=== PATIENT | male | born 1985 | race Caucasian/White ===

== ENCOUNTER 2020-12-18 04:31 | Inpatient (IN) | payer MEDICAID, SELFPAY ==
[2020-12-18 04:31] VITALS: BP 136/99; PULSE 67; RESP 18; TEMP 36.9; O2SAT 99; BMI 17.9
--- NOTE | 2020-12-18 04:37 | W.ED.PSYCH ---
HPI - Psych General: Chief Complaint: Psychiatric Symptoms Stated Complaint: si/hi Time Seen by Provider: 12/18/20 04:31 Source: patient and EMS Mode of arrival: EMS Limitations: no limitations History of Present Illness: HPI Narrative: 85-year-old male who states he has been having relationship issues with his fianc?e and she does not find any infection anymore and that he is having suicidal thoughts. He states is also had thoughts of harming other people as well. He has no active plan but states that he is becoming increasingly suicidal. He does have a history of drug use and is on Suboxone. He states he has been drinking tonight and has had roughly 7-8 beers. Associated symptoms: Reports depression Review of Systems Const: Denies: fever(s), chills, body aches or change in appetite Eyes: Denies: blurry vision or eye discomfort ENMT: Denies: throat pain or dental pain Card: Denies: chest pain Resp: Denies: dyspnea GI: Denies: abdominal pain, nausea, vomiting or diarrhea : Denies: dysuria Musc: Denies: neck pain or back pain Skin/Breast: Denies: rash Neuro: Denies: headache(s) Psych: Reports: depression Cliff/Lymph: Denies: easy bruising All/Imm: Denies: urticaria Physical Exam Const: COMMON NORMALS: no acute distress, patient oriented x3 and healthy appearing HENMT: COMMON NORMALS: normocephalic and atraumatic HEAD & SCALP: normocephalic and atraumatic Eye: COMMON NORMALS: Equal, round and reactive pupils present and EOMs intact bilaterally PUPIL: Yes Equal, round and reactive pupils present Neck/C-Spine: COMMON NORMALS: full ROM and supple Chest: COMMONS NORMALS: normal inspection of the chest and normal palpation of entire chest wall Resp: COMMON NORMALS: normal respiratory effort, No retractions, No use of accessory muscles and clear to auscultation bilaterally AUSCULTATION: clear to auscultation bilaterally Cardio: COMMON NORMALS: regular rate, regular rhythm and No murmurs present (Cardio) RATE: regular rate RHYTHM: regular rhythm GI: COMMON NORMALS: Normal to inspection, nondistended, normoactive bowel sounds present, Soft to palpation, non-tender and no masses PALPATION: Yes Soft to palpation Extremity: COMMON NORMALS: normal to inspection and full ROM Neuro: COMMON NORMALS: patient oriented x3, moves all extremities and no focal motor deficits Psych: COMMON NORMALS: mental status grossly normal, Normal thought process present and cooperative MOOD & AFFECT: Yes depressed mood THOUGHT PROCESS: Normal thought process present THOUGHT CONTENT: Yes Suicidality present Skin: COMMON NORMALS: no rashes or lesions noted and no wounds GENERAL SKIN EXAM: no rashes or lesions noted Course Vital Signs: Vital signs: Vital Signs Temperature 98.4 F 12/18/20 04:31 Pulse Rate 67 12/18/20 04:31 Respiratory Rate 18 12/18/20 04:31 Blood Pressure 136/99 12/18/20 04:31 Pulse Oximetry 99 12/18/20 04:31 MDM - Psych MDM Narrative: Medical decision making narrative: Patient presents here with suicidal ideation was placed on a 96-hour hold. Patient is medically cleared I spoke to psychiatrist and will admit to the psychiatric unit. Lab Data: Labs: Lab Results 12/18/20 Range/Units 05:10 WBC 6.9 (4.0-10.0) 10^3/ uL RBC 5.04 (4.1-5.3) 10^6/u L Hgb 14.9 (11.7-16.6) g/dL Hct 44.0 (42.0-52.0) % MCV 87.3 (80-94) fL MCH 29.6 (28.0-34.0) pg MCHC 33.9 (30.0-36.0) g/dL RDW 12.4 (12.1-15.1) % Plt Count 267 (130-400) 10^3/c mm MPV 9.6 (7.4-10.4) fL Neut % (Auto) 47.6 % Lymph % (Auto) 39.1 % [place] % (Auto) 9.4 % Eos % (Auto) 2.6 % Baso % (Auto) 1.2 % Neut # (Auto) 3.30 (1.8-7.7) 10^3/u L Lymph # (Auto) 2.7 (0.8-4.8) 10^3/u L [place] # (Auto) 0.7 (0.2-0.9) 10^3/u L Eos # (Auto) 0.2 (0.0-0.8) 10^3/u L Baso # (Auto) 0.1 (0.0-0.1) 10^3/u L Nucleated RBC % (a uto) 0 % Nucleated RBCs # 0.0 /100WBC Discharge Plan Discharge Patient Disposition: Admitted As Inpatient Clinical Impression: Suicidal ideation, Alcohol intoxication Condition: Stable Coding Level of Care Code ED Promotion Officer for [place] Fwd Exam Comprehensive
[2020-12-18] MEDS: LORazepam 2 mg/mL INJ 1 mL IM (05:17)
[2020-12-18 05:18] LABS: Basophils # 0.1 10^3/uL (0.0-0.1); Basophils % 1.2 %; Eosinophils # 0.2 10^3/uL (0.0-0.8); Eosinophils % 2.6 %; Hemoglobin 14.9 g/dL (11.7-16.6); Lymphocytes # 2.7 10^3/uL (0.8-4.8); Lymphocytes % 39.1 %; Mean Corpuscular HGB Conc 33.9 g/dL (30.0-36.0); Mean Corpuscular Hemoglobin 29.6 pg (28.0-34.0); Mean Corpuscular Volume 87.3 fL (80-94); Mean Platelet Volume 9.6 fL (7.4-10.4); Monocytes # 0.7 10^3/uL (0.2-0.9); Monocytes % 9.4 %; Neutrophils % 47.6 %; Nucleated Red Blood Cells % 0 %; Platelet Count 267 10^3/cmm (130-400); Red Blood Count 5.04 10^6/uL (4.1-5.3); Red Cell Distribution Width 12.4 % (12.1-15.1); White Blood Count 6.9 10^3/uL (4.0-10.0)
[2020-12-18 05:40] LABS: Alanine Aminotransferase 34 U/L (0-41); Alcohol Level 226 mg/dL (0-10); Alkaline Phosphatase 96 IU/L (40-130); Aspartate Amino Transferase 40 U/L (0-40); Blood Urea Nitrogen 5 mg/dL (6-20); Calcium 8.8 mg/dL (8.5-10.5); Carbon Dioxide 21 mmol/L (22-29); Chloride 103 mmol/L (98-107); Creatinine Clr Calc Pharmacy 148.5106; Globulin 3.4 g/dL (1.3-4.6); Glomerular Filtration Rate 152.4 mL/min (90-130); Glucose 95 mg/dL (65-115); Osmolality Calculated 285 mOsm/kg (285-295); Sodium 139 mmol/L (136-145); Total Bilirubin 0.2 mg/dL (0.15-1.2); Total Protein 7.4 g/dL (6.6-8.7)
[2020-12-18 05:42] LABS: Acetaminophen < 5.0 ug/mL (10-30); Anion Gap 18.6 (5-19); Potassium 3.6 mmol/L (3.5-5.1); Salicylate < 0.3 mg/dL (3-10)
[2020-12-18 06:11] LABS: Amphetamines Screen Urine Negative (Negative); Barbiturates Screen Urine Negative (Negative); Benzodiazepines Screen Urine Negative (Negative); Cocaine Screen Urine Negative (Negative); Opiate Screen Urine Negative (Negative); PCP Screen Urine Negative (Negative); THC Screen Urine Positive (Negative)
[2020-12-18] MEDS: nicotine 21 mg Patch 1 PATCH TRANSDERMA (07:08)
[2020-12-18 07:21] VITALS: BP 122/86; BP 138/89; PULSE 67; PULSE 71; RESP 18; TEMP 36.6; O2SAT 98; O2SAT 99
[2020-12-18 07:34] LABS: Alcohol Level 205 mg/dL (0-10)
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
[2020-12-18] MEDS: multivitamin therapeutic Tablet 1 TAB PO (10:12)
[2020-12-18] MEDS: thiamine 100 mg Tablet PO (10:12)
[2020-12-18] MEDS: folic acid 1 mg Tablet PO (10:12)
--- NOTE | 2020-12-18 13:37 | PM.NHP ---
Providers/Chief Complaint Admitting Physician: Theodora Marin DO Chief Complaint: si/hi HPI NPU History of Present Illness Ernst Valladares is a 35 year old male with unclear past psychiatric history reportedly followed by Suboxone clinic although states he had been out of Suboxone and appears to be involved in argument leading up to his hospitalization while intoxicated with alcohol. Patient had made both suicidal and homicidal statements in an effort to not go to fdc and come to the hospital. Patient initially states that he did not recall all of the details of coming to the hospital but then subsequently states that he remembered saying that he was suicidal but currently denies any current or recent suicidal ideation or thoughts about harming others and states that he never had any active intent or plan of hurting himself or others. He denies any recent mood symptoms although he does report intermittent anxiety symptoms. Patient denies any past psychiatric hospitalizations but reports that he had previously been seen at [facility] for anxiety and was treated with Klonopin and Valium. When asked about starting up first-line medication for anxiety such as citalopram or sertraline, patient states that he prefers not to take any medication for his anxiety because those medications caused him to feel sick. He reports that he only takes Suboxone. He denies any recent or past manic or hypomanic episodes. He denies any recent or past psychotic symptoms, no auditory or visual hallucinations, no delusions. Psychiatric review of systems is otherwise negative Review of Systems General: Reports: 10 or more systems reviewed and unremarkable except in HPI and below Meds NPU Home Medications Medication Instructions Recorded Confirmed Last Taken Type buprenorphine-naloxone 1 tab SUBLINGUAL 12/18/20 12/16/20 History Allergies Allergy/AdvReac Type Severity Reaction Status Date / Time naproxen Allergy ADR-Nausea Verified 12/18/20 04:51 Penicillins Allergy ALGY-Hives Verified 12/18/20 04:51 [facility] NPU Other Psychiatric History: Other Psychiatric History: Per HPI, last seen at [facility] a couple years ago Denies any history of psychiatric hospitalization Denies any history of suicide attempt or self-harm behavior Mental Status Exam MSE Comments: Disheveled, unkempt, lying in bed, poor eye contact Psychomotor activity is decreased, no agitation Speech is low volume, sparse, requires prompting to respond, fair articulation, not pressured I feel tired, horrible, congruent affect, not labile Tired appearing, oriented to person, place, time, situation Memory and concentration are fair with patient providing poor effort at this time per interview Intellectual functioning appears to be average at best based on vocabulary, interview Thought process, linear with significant delays, poor effort, no flight of ideas, no looseness of associations Thought content, no stated delusions, does not appear to be attending to any internal stimuli, no suicidal homicidal ideation Insight and judgment appear to be fair Vitals/I&O/Wt Last Vital Signs Temp 97.8 F 12/18/20 07:21 Pulse 71 12/18/20 07:21 Resp 18 12/18/20 07:21 BP 122/86 12/18/20 07:21 Pulse Ox 98 12/18/20 07:21 Weight last 48 hrs Weight 61.689 kg Data NPU : 12/18/20 05:10 12/18/20 05:10 A&P Assessment and plan (1) Suicidal ideation: Status: Acute (2) Alcohol intoxication: Status: Acute Additional A&P Information Patient with history of opioid dependence presented to the emergency department by police making homicidal and suicidal statements although patient denies ever being homicidal or suicidal and denies any recent mood symptoms, denies anxiety symptoms, refusing any medication to target depressive or anxiety symptoms. INVOLUNTARY ADMIT to inpatient psychiatry [facility] protocol Observe for any persistence in suicidal or homicidal ideation or behavior Encourage patient participate in unit activities to include group sessions, unit milieu Coordinate with social work program coordinator for post discharge substance counseling/therapy Involuntary Hold Information 96 Hour Hold: 96 Hour Involuntary Admission: Yes 96 Hour Hold Ending Date: 12/25/20 96 Hour Hold Ending Time: 04:49 Attestations NPU Medical Necessity Statement*: Psychiatric hospitalization is indicated at this time for observation for any return of any persistent suicidal ideation or behavior, coordination for safe discharge Anticipate hospital stay to exceed 2 midnights Coding Level of Care Code Acute Self Pay Representative for [place] Perez Diagnoses Suicidal ideation R45.851 Alcohol intoxication F10.929
[2020-12-18 14:00] VITALS: BP 155/69; PULSE 77; RESP 17; TEMP 36.6; O2SAT 99
[2020-12-18] MEDS: acetaminophen 325 mg Tablet 650 MG PO ×2 (15:56→20:23)
[2020-12-18] MEDS: hyDROXYzine 25 mg Capsule 50 MG PO (15:56)
[2020-12-18 19:58] VITALS: BP 113/74; PULSE 75; RESP 16; TEMP 37.2; O2SAT 97
[2020-12-18] MEDS: ondansetron 4 MG Tablet PO (20:23)
[2020-12-18] MEDS: nicotine 2 mg Gum BUCCAL (20:29)
--- NOTE | 2020-12-18 22:54 | PC.NURSE ---
behavior pt sitting up in the bed, legs drawn up to chest, rocking, states he needs some ativan. Pt was nauseated, reported to med nurse who gave him Zofran, stated he was aching all over, given tylenol. pt wanted to go home, informed of 96 hr hold.
[2020-12-19 06:00] VITALS: BP 125/76; PULSE 54; RESP 16; TEMP 36.6; O2SAT 99
[2020-12-19] MEDS: thiamine 100 mg Tablet PO (08:58)
[2020-12-19] MEDS: folic acid 1 mg Tablet PO (08:58)
[2020-12-19] MEDS: multivitamin therapeutic Tablet 1 TAB PO (08:58)
--- NOTE | 2020-12-19 10:15 | P.DS_ITS ---
Diagnoses at Discharge Discharge Diagnosis (1) Suicidal ideation: Status: Acute (2) Alcohol intoxication: Status: Acute Reason for Visit Reason for Visit: si/hi Hospital Course Hospital Course 35 year old male with unclear past psychiatric history reportedly followed by Suboxone clinic although states he had been out of Suboxone and appears to be involved in argument leading up to his hospitalization while intoxicated with alcohol. Patient had made both suicidal and homicidal statements in an effort to not go to retirement and come to the hospital. Patient mostly slept for first day while sobering but denied any suicidal or homicidal ideation and denied any past history of violence or physical assaults and denied any history of past suicide attempts. He did report a history of anxiety which she states had previously been treated by outpatient psychiatry with benzodiazepines but stated that he refused to start any antidepressants because he did not like how they made him feel. Patient participate in unit milieu with no reports of any behavioral disturbances. Patient was not suicidal or homicidal and did not endorse any psychiatric symptoms at the time of discharge and did not appear to pose an imminent threat of harm to self or others. Low to moderate risk given no current suicidal or homicidal ideation and no past history of violence although his risk may be elevated if he continues to use any substances or alcohol leading to disinhibited, unexpected, impulsive behavior. Risk mitigation included psychiatric hospitalization for observation for any return of suicidal homicidal ideation or behaviors, evaluation for the need of any medication interventions, recommendation to abstain from the use of s ubstances and alcohol as well as the need for post discharge substance counseling/treatment. Patient was able to communicate his understanding of the need to abstain from use of substances and alcohol as well as the need for post discharge mental health care and substance counseling/treatment in order to further mitigate his risk of harm to self and others. Involuntary Hold Information 96 Hour Hold: 96 Hour Involuntary Admission: Yes 96 Hour Hold Ending Date: 12/25/20 96 Hour Hold Ending Time: 04:49 Mental Status Exam MSE Comments: Sitting in the day room, calm, cooperative, polite, interactive, disheveled, unkempt, wrapped in a blanket, good eye contact Psychomotor activity is neither increased nor decreased, no agitation Speech is normal rate and volume, spontaneous, fair articulation, not pressured I am feeling better, full range, not labile Alert and oriented to person, place, time, situation Memory and concentration appear to be intact per interview Thought process, linear, no flight of ideas, no looseness of associations Thought content, no delusions, no hallucinations, no suicidal or homicidal ideation Insight and judgment appear to be fair to intact Discharge Data Vitals: Last Vital Signs Temp 97.9 F 12/19/20 06:00 Pulse 54 L 12/19/20 06:00 Resp 16 12/19/20 06:00 BP 125/76 12/19/20 06:00 Pulse Ox 99 12/19/20 06:00 Discharge Plan Discharge Patient Disposition: Home Condition: Stable Prescriptions: Continued buprenorphine-naloxone 8-2 mg tablet, sublingual 1 tab SUBLINGUAL DAILY RF: 0 Discharge Orders: Discharge Order (Routine); Ordered 12/19/20 Ordered By: Theodora Marin Referrals: [facility] [Other] (Call Monday for a follow-up appointment) [facility] [Outside] Discharge Diet: Regular Discharge Activity: Resume usual activity Patient Instructions: Generalized Anxiety Disorder (DC), Opioid Safety Discharge Attestations NPU Time Spent in Discharge Care*: greater than 30 min Status at Discharge: Cognitive status at discharge: cognitively intact , Behavioral status at discharge: cooperative , Functional status at discharge: independent ambulation Overall status at discharge: patient is back to baseline Coding Level of Care Code Acute Chg FW DC note Diagnoses Suicidal ideation R45.851 Alcohol intoxication F10.929
[2020-12-19 10:18] VITALS: BP 125/76; PULSE 54; RESP 16; TEMP 36.6; O2SAT 99
== END 2020-12-19 10:26 | disposition home or self-care (01) | DRG 897 ==
LOC: ER 05:16 → NP 05:52
PROVIDERS: Admitting Provider Psychiatry & Neurology Psychiatry; Emergency Provider Emergency Medicine; Visit Provider Psychiatry & Neurology Psychiatry
DX: F10.129 Alcohol abuse with intoxication, unspecified (principal); R45.851 Suicidal ideations; F11.20 Opioid dependence, uncomplicated; R45.850 Homicidal ideations; F41.9 Anxiety disorder, unspecified
CPT/HCPCS: 36415; 80053; 80306; 80307; 85025; 96372; 99285; J2060; J3411; Q0162

== ENCOUNTER 2021-03-14 09:15 | Emergency (ER) | payer MEDICAID, SELFPAY ==
[2021-03-14 09:16] VITALS: BMI 17.3
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
[2021-03-14 09:25] VITALS: BP 130/96; PULSE 65; RESP 16; O2SAT 96
[2021-03-14 09:34] VITALS: BP 130/96; PULSE 82; RESP 16; TEMP 36.4; O2SAT 97
--- NOTE | 2021-03-17 11:27 | DCPLANNER ---
clinical marketing manager had message to speak with patient about getting a primary care physician. clinical marketing manager is unable to speak with patient due to no phone number in patients information.
== END 2021-03-14 09:36 | disposition home or self-care (01) ==
PROVIDERS: Emergency Provider Emergency Medicine
DX: F32.9 Major depressive disorder, single episode, unspecified (principal)
CPT/HCPCS: 99282